=== PATIENT | male | born 1985 | race Caucasian/White ===

== ENCOUNTER 2017-02-02 14:29 | Emergency (ER) | payer MEDICARE, MEDICAID ==
[~2017-02-02] VITALS: Ht 190.5 cm; Wt 91.0 kg
[~2017-02-02 14:29] MED LIST: BACL20TA PO; BISA-81 PO; BISA10SU97 PR; DIAZ10TA PO; DOCU-138 PO; DOCU-155 PO; FENT1PAT54 TD; FLUC200T37 PO; HYDR-519 PO; TIZA-19 PO
[2017-02-02 14:42] VITALS: BP 102/53
== END 2017-02-02 19:10 | disposition left against medical advice (07) ==
LOC: ER 15:21
DX: Z53.21 Procedure and treatment not carried out due to patient leaving prior to being seen by health care provider (principal)